=== PATIENT | female | born 1945 | race Caucasian/White ===

== ENCOUNTER 2017-05-16 09:00 | Outpatient (RCR) | payer OTHER ==
[~2017-05-16 09:00] MED LIST: AMBIEN5 MG PO; LEXAPRO10 MG PO; RESTORIL7.5 MG PO
== END 2017-06-10 | disposition home or self-care (01) ==
LOC: PTY 09:00
DX: M48.061 Spinal stenosis, lumbar region without neurogenic claudication (principal); M17.12 Unilateral primary osteoarthritis, left knee